=== PATIENT | male | born 1995 | race Caucasian/White ===

== ENCOUNTER 2022-03-02 19:45 | Emergency (ER) | payer BC ==
[~2022-03-02] VITALS: Ht 172.7 cm; Wt 74.8 kg
--- NOTE | 2022-03-02 20:09 | ED Cough/URI ---
General Chief Complaint: COVID19 Suspect/Confirmed Stated Complaint: FEVER Source: patient Exam Limitations: no limitations History of Present Illness Date Seen by Provider: Mar 02, 2022 Time Seen by Provider: 20:02 Allergies and Home Medications Allergies Coded Allergies: No Known Drug Allergies (Unverified , 03/02/22) Patient Home Medication List Ondansetron (Ondansetron Odt) 4 Mg Tab.rapdis, 4 MG PO Q6H Prescribed by: KEN BLACKBURN on 03/02/222104 Physical Exam Vital Signs - First Documented 03/02/22 20:00 Temp 38.5 Pulse 100 Resp 16 B/P (MAP) 129/72 (91) Pulse Ox 97 Capillary Refill : Height: '" Weight: lbs. oz. kg; BMI Method: Progress/Results/Core Measures Suspected Sepsis SIRS Temperature: Pulse: Respiratory Rate: Blood Pressure / Mean: Results/Orders Lab Results Laboratory Tests Test 03/02/22 20:04 Range/Units Influenza Type A (RT-PCR) Not Detected Not Detecte Influenza Type B (RT-PCR) Not Detected Not Detecte SARS-CoV-2 RNA (RT-PCR) Detected H Not Detecte My Orders Orders - KEN BLACKBURN AUTO TECH Covid 19 Inhouse Test (03/02/22 19:55) Influenza A And B By Pcr (03/02/22 19:55) Ondansetron Oral Dissolve Tab (Zofran (03/02/22 20:30) Acetaminophen Tablet (Tylenol Tablet) (03/02/22 20:30) Medications Given in ED Current Medications Medications Dose Ordered Sig/Lois Route Start Time Stop Time Status Last Admin Dose Admin Acetaminophen 1,000 mg ONCE ONCE PO 03/02/22 20:30 03/02/22 20:31 DC 03/02/22 20:34 1,000 MG Ondansetron HCl 4 mg ONCE ONCE PO 03/02/22 20:30 03/02/22 20:31 DC 03/02/22 20:34 4 MG Vital Signs/I&O 03/02/22 03/02/22 20:00 20:34 Temp 38.5 38.2 Pulse 100 Resp 16 B/P (MAP) 129/72 (91) Pulse Ox 97 Capillary Refill : Departure Impression Primary Impression: COVID-19 Disposition: 01 HOME, SELF-CARE Condition: Improved Departure-Patient Inst. Decision time for Depature: 21:03 Patient Instructions: COVID-19 (DC) Add. Discharge Instructions: Plan: 1. Isolate at home for 5 days, then mask for 5 days. 2. May take Tylenol or Ibuprofen as needed for fever or discomfort. 3. Drink plenty of fluids to stay hydrated. 4. Zofran 4mg by mouth every 6 hours as needed for nausea. 5. Return for any new, concerning, or worsening symptoms. All discharge instructions reviewed with patient and/or family. Voiced understanding. Scripts Ondansetron (Ondansetron Odt) 4 Mg Tab.rapdis 4 MG PO Q6H, #10 TAB 0 Refills Prov: KEN BLACKBURN AUTO TECH 03/02/22 Work/School Note: Work Release Form Date Seen in the Emergency Department: Mar 02, 2022 Return to Work: Mar 08, 2022 Restrictions: No Restrictions KEN BLACKBURN AUTO TECH Mar 02, 2022 20:09
[2022-03-02] MEDS ORDERED: ONDANSETRON 4 MG (ZOFRAN) ORAL DISSOLVE TAB PO ONE (20:30)
[2022-03-02] MEDS ORDERED: ACETAMINOPHEN 500 MG TAB (TYLENOL) PO ONE (20:30)
[2022-03-02] MEDS ORDERED: ONDA4TAB11 PO (21:05)
[2022-03-02 21:23] VITALS: BP 136/71
== END 2022-03-02 21:26 | disposition home or self-care (01) ==
LOC: ER 19:47
DX: U07.1 COVID-19 (principal)
CPT/HCPCS: 87636; 99283